=== PATIENT | male | born 1960 | race Caucasian/White ===

== ENCOUNTER 2016-11-11 09:40 | Emergency (ER) | payer OTHER ==
[2016-11-11] MEDS ORDERED: Aspirin 81 MG Tab.Chew PO ONE (10:03)
--- NOTE | 2016-11-11 10:10 | EDM.PDOC ---
ED HPI GENERAL MEDICAL PROBLEM - General Chief Complaint: Syncope Stated Complaint: DIZZY Time Seen by Provider: 11/11/16 09:50 - History of Present Illness INITIAL COMMENTS - FREE TEXT/NARRATIVE: HISTORY AND PHYSICAL: History of present illness: Patient is 56-year-old white male presents with concern of palpitations patient states he had several episodes in which he felt like he describes a funny feeling in his chest he says it feels somewhat like a skipped beat or an extra beat he denies chest pain denies nausea vomiting he notes that today and she just didn't feel right he describes some lightheadedness or dizziness there was no associated shortness of breath or chest pain with any of these episodes patient is an avid athlete and plays basketball regularly he does have a scheduled regular appointment with his private medical doctor. He denies drug or alcohol abuse he is not a smoker is no diabetes and has a negative family history Review of systems: As per history of present illness and below otherwise all systems reviewed and negative. Past medical history: As per history of present illness and as reviewed below otherwise noncontributory. Surgical history: As per history of present illness and as reviewed below otherwise noncontributory. Social history: No reported history of drug or alcohol abuse. Family history: As per history of present illness and as reviewed below otherwise noncontributory. Physical exam: HEENT: Atraumatic, normocephalic, pupils reactive, negative for conjunctival pallor or scleral icterus, mucous membranes moist, throat clear, neck supple, nontender, trachea midline. Lungs: Clear to auscultation, breath sounds equal bilaterally, chest nontender. Heart: S1S2, regular, negative for clicks, rubs, or JVD. Abdomen: Soft, nondistended, nontender. Negative for masses or hepatosplenomegaly. Negative for costovertebral tenderness. Pelvis: Stable nontender. Genitourinary: Deferred. Rectal: Deferred. Extremities: Atraumatic, negative for cords or calf pain. Neurovascular unremarkable. Neuro: Awake, alert, oriented. Cranial nerves II through XII unremarkable. Cerebellum unremarkable. Motor and sensory unremarkable throughout. Exam nonfocal. Diagnostics: CBC CMP PT/INR troponin d-dimer chest x-ray EKG CT brain Therapeutics: Aspirin 324 mg by mouth Impression: #1 dysphoria #2 palpitations #3 dizziness Definitive disposition and diagnosis as appropriate pending reevaluation and review of above. - Related Data Allergies Allergy/AdvReac Type Severity Reaction Status Date / Time amoxicillin [From Augmentin] Allergy Diarrhea Verified 11/11/16 10:14 clavulanic acid Allergy Diarrhea Verified 11/11/16 10:14 [From Augmentin] Home Meds: Home Meds . [No Known Home Meds] 11/11/16 [History] Past Medical History HEENT History: Reports: Other (see below) Other HEENT History: New Dental [place] this week Musculoskeletal History: Reports: Other (see below) Other Musculoskeletal History: Some discomfort to Right wrist 'may be arthritis' - Past Surgical History GI Surgical History: Reports: Colonoscopy Social & Family History - Tobacco Use Smoking Status *Q: Never Smoker Second Hand Smoke Exposure: No - Recreational Drug Use Recreational Drug Use: No Drug Use in Last 12 Months: No ED ROS GENERAL - Review of Systems Review Of Systems: ROS reveals no pertinent complaints other than HPI. ED EXAM, GENERAL - Physical Exam Exam: See Below (See dictation) Course - Vital Signs Text/Narrative:: Results were reviewed with patient case was discussed with Dr. Rivera discussion regarding observation versus outpatient management was reviewed with patient and PMD patient opts for outpatient followup with Dr. Rivera return as needed as discussed Last Recorded V/S: Last Vital Signs Temp 36.4 C 11/11/16 10:00 Pulse 75 11/11/16 10:00 Resp 18 11/11/16 10:00 BP 167/90 H 11/11/16 10:00 Pulse Ox 98 11/11/16 10:00 - Orders/Labs/Meds Orders: Active Orders 24 hr Category Date Time Status EKG Documentation Completion [RC] STAT Care 11/11/16 10:02 Active Chest 2V [CR] Stat Exams 11/11/16 10:03 Taken Head wo Cont [CT] Stat Exams 11/11/16 10:03 Taken COMPREHENSIVE METABOLIC PN,CMP [CHEM] Stat Lab 11/11/16 10:12 Received Labs: Laboratory Tests 11/11/16 11/11/16 11/11/16 Range/Units 10:12 10:12 10:12 WBC 3.80 L (4.0-11.0) K/uL RBC 5.79 (4.50-5.90) M/uL Hgb 16.6 (13.0-17.0) g/dL Hct 49.1 (38.0-50.0) % MCV 84.8 (80.0-98.0) fL MCH 28.7 (27.0-32.0) pg MCHC 33.8 (31.0-37.0) g/dL RDW Std Deviation 44.3 (28.0-62.0) fl RDW Coeff of Kiersten 14 (11.0-15.0) % Plt Count 208 (150-400) K/uL MPV 10.50 (7.40-12.00) fL Neut % (Auto) 58.4 (48.0-80.0) % Lymph % (Auto) 29.5 (16.0-40.0) % Edgar % (Auto) 7.9 (0.0-15.0) % Eos % (Auto) 3.7 (0.0-7.0) % Baso % (Auto) 0.5 (0.0-1.5) % Neut # (Auto) 2.2 (1.4-5.7) K/uL Lymph # (Auto) 1.1 (0.6-2.4) K/uL Edgar # (Auto) 0.3 (0.0-0.8) K/uL Eos # (Auto) 0.1 (0.0-0.7) K/uL Baso # (Auto) 0.0 (0.0-0.1) K/uL Nucleated RBC % 0.0 /100WBC Nucleated RBCs # 0 K/uL INR 1.04 (0.86-1.11) D-Dimer, Quantitative 0.41 (0.0-0.52) mg/LFEU Troponin I < 0.10 (0.0-0.29) NG/ML Meds: Medications Discontinued Medications Generic Name Dose Route Start Last Admin Trade Name Freq PRN Reason Stop Dose Admin Aspirin 324 mg 11/11/16 10:03 11/11/16 10:18 Aspirin PO 11/11/16 10:04 324 mg ONETIME ONE Administration Departure - Departure Time of Disposition: 10:47 Disposition: Home, Self-Care 01 Condition: good Clinical Impression: Dizziness, Palpitations Referrals: James Rivera MD [Primary Care Provider] - Forms: ED Department Discharge Additional Instructions: The following information is given to patients seen in the emergency department who are being discharged to home. This information is to outline your options for follow-up care. We provide all patients seen in our emergency department with a follow-up referral. The need for follow-up, as well as the timing and circumstances, are variable depending upon the specifics of your emergency department visit. If you don't have a primary care physician on staff, we will provide you with a referral. We always advise you to contact your personal physician following an emergency department visit to inform them of the circumstance of the visit and for follow-up with them and/or the need for any referrals to a consulting specialist. The emergency department will also refer you to a specialist when appropriate. This referral assures that you have the opportunity for followup care with a specialist. All of these measure are taken in an effort to provide you with optimal care, which includes your followup. Under all circumstances we always encourage you to contact your private physician who remains a resource for coordinating your care. When calling for followup care, please make the office aware that this follow-up is from your recent emergency room visit. If for any reason you are refused follow-up, please contact the [facility] emergency department at and asked to speak to the emergency department charge nurse. Continue aspirin daily follow up with private medical doctor as discussed return as needed as discussed - My Orders Last 24 Hours: My Active Orders 11/11/16 10:02 EKG Documentation Completion [RC] STAT 11/11/16 10:03 Chest 2V [CR] Stat Head wo Cont [CT] Stat 11/11/16 10:12 COMPREHENSIVE METABOLIC PN,CMP [CHEM] Stat - Assessment/Plan Last 24 Hours: My Active Orders 11/11/16 10:02 EKG Documentation Completion [RC] STAT 11/11/16 10:03 Chest 2V [CR] Stat Head wo Cont [CT] Stat 11/11/16 10:12 COMPREHENSIVE METABOLIC PN,CMP [CHEM] Stat
[2016-11-11 10:54] LABS: CHLORIDE,CL 107 mmol/L (98-110); SODIUM,NA 141 mmol/L (136-146)
--- NOTE | 2016-11-11 11:04 | CR ---
EXAMINATION: Two-view chest (PA and Lateral views). HISTORY: Shortness of breath. FINDINGS: The trachea is midline. The cardiomediastinal silhouette is within normal limits. No pulmonary infil trates, effusions or pneumothorax. Osseous structures appear unremarkable. IMPRESSION: No acute cardiopulmonary process.
--- NOTE | 2016-11-11 11:09 | CT ---
EXAMINATION: Non contrast CT head. Coronal and sagittal reformats. HISTORY: Pain FINDINGS: No evidence of intra or extra axial hemorrhage, mass, midline shift, hydrocephalus or edema. No hy poattenuation changes in the major vascular territories to suggest acute infarct. No abnormal intracranial calcifications are detected. No evidence of substantial vascular calcifica tions. Mild mucosal thickening is noted within the right maxillary sinus. Mastoid air cells are clear. Ther e is moderate rightward deviation of the nasal septum. Pituitary fossa appears unremarkable. The calvarium is intact. No evidence of skull fracture. IMPRESSION: No acute intracranial findings.
[2016-11-11 11:28] VITALS: BP 125/86
== END 2016-11-11 11:30 | disposition home or self-care (01) ==
LOC: MW.ED 09:40
DX: R42 Dizziness and giddiness (principal); R00.2 Palpitations; F64.0 Transsexualism; Z88.1 Allergy status to other antibiotic agents
CPT/HCPCS: 36415; 70450; 71020; 80053; 84484; 85025; 85379; 85610; 93005; 99284; A9270

== ENCOUNTER → 2016-11-17 | Outpatient (CLI) | payer OTHER | END | disposition home or self-care (01) | LOC: MW.RT 12:51 | PROVIDERS: ATTEND Emergency Medicine | DX: R00.2 Palpitations (principal) | CPT/HCPCS: 93225 ==

== ENCOUNTER 2018-08-30 07:34 | Day surgery (SDC) | payer OTHER ==
--- NOTE | 2018-08-30 07:29 | PCM.PREANE ---
Preanesthetic Assessment - Anesthesia/Transfusion/Family Hx Anesthesia History: Prior Anesthesia Reaction (colonoscopy, knee scope: post op nausea after knee scope) Type of Anesthesia Reaction: Excessive Nausea/Vomiting Other Type of Anesthesia Reaction Comment: Denies any known family history of problems with anesthesia Family History of Anesthesia Reaction: No Transfusion History: No Prior Transfusion(s) - Review of Systems General: No Symptoms (history of motion sickness) Pulmonary: No Symptoms Cardiovascular: No Symptoms Gastrointestinal: No Symptoms Neurological: No Symptoms (history of concussion 2017. CT head was WNL. Basketball injury. No sequelae) Other: Reports: None - Physical Assessment NPO Status Date: 08/30/18 NPO Status Time: 00:00 Pulse: 71 O2 Sat by Pulse Oximetry: 98 Respiratory Rate: 16 Blood Pressure: 177/90 Temperature: 36.6 C Height: 1.96 m Weight: 90.718 kg ASA Class: 1 Mental Status: Alert & Oriented x3 Airway Class: Mallampati = 1 Dentition: Reports: Normal Dentition Thyro-Mental Finger Breadths: 2 Mouth Opening Finger Breadths: 3 ROM/Head Extension: Full Lungs: Clear to Auscultation, Normal Respiratory Effort Cardiovascular: Regular Rate, Regular Rhythm, No Murmurs - Imaging/EKG Impressions: EKG 2017: NSR with [facility] (in ER for concussion) - Allergies Allergies/Adverse Reactions: Allergies Allergy/AdvReac Type Severity Reaction Status Date / Time amoxicillin [From Augmentin] Allergy Nausea and Verified 08/29/18 10:08 Vomiting clavulanic acid Allergy Nausea and Verified 08/29/18 10:08 [From Augmentin] Vomiting - Blood Blood Available: No Product(s) Available: None - Anesthesia Plan Pre-Op Medication Ordered: None - Acknowledgements Anesthesia Type Planned: General Anesthesia (Plan: GA. LMA vs. ett. Denies GERD) Pt an Appropriate Candidate for the Planned Anesthesia: Yes Alternatives and Risks of Anesthesia Discussed w Pt/Guardian: Yes Pt/Guardian Understands and Agrees with Anesthesia Plan: Yes PreAnesthesia Questionnaire HEENT History: Reports: None Other HEENT History: New Dental [place] this week Cardiovascular History: Reports: None Respiratory History: Reports: None Gastrointestinal History: Reports: None Genitourinary History: Reports: None Musculoskeletal History: Reports: Other (See Below) Other Musculoskeletal History: Some discomfort to Right wrist 'may be arthritis' Neurological History: Reports: Concussion, Other (See Below) Other Neuro History: hx of motion sickness Psychiatric History: Reports: None Endocrine/Metabolic History: Reports: None Hematologic History: Reports: None Immunologic History: Reports: None Oncologic (Cancer) History: Reports: None Dermatologic History: Reports: None - Infectious Disease History Infectious Disease History: Reports: None - Past Surgical History Head Surgeries/Procedures: Reports: None GI Surgical History: Reports: Colonoscopy Musculoskeletal Surgical History: Reports: Arthroscopic Knee - SUBSTANCE USE Smoking Status *Q: Never Smoker Recreational Drug Use History: No - HOME MEDS Home Medications: Home Meds . [No Known Home Meds] 11/11/16 [History] - CURRENT (IN HOUSE) MEDS Current Meds: Current Medications Hydrocodone Bitart/Acetaminophen ([place] 325-5 Mg) 1 tab PO Q4H PRN PRN Reason: Pain Bupivacaine HCl/Epinephrine Bitart (Marcaine 0.25%/Epinephrine 1:200,000) 10 ml INJECT ONETIME ONE Stop: 08/30/18 08:01 Clindamycin Phosphate 600 mg/ (Premix) 50 mls @ 150 mls/hr IV ONETIME ONE Stop: 08/30/18 08:19 Lactated Ringer's (Ringers, Lactated) 1,000 mls @ 125 mls/hr IV ASDIRECTED ZEESHAN Discontinued Medications Clindamycin Phosphate (Cleocin In D5w) Confirm Administered Dose 50 mls @ as directed .ROUTE .STK-MED ONE Stop: 08/30/18 07:16 Bupivacaine HCl/Epinephrine Bitart (Sensorc Mpf 0.25%-Epi [id number]) Confirm Administered Dose 30 mls @ as directed .ROUTE .STK-MED ONE Stop: 08/30/18 07:22
[~2018-08-30 07:34] MED LIST: Bupivacaine 25%/EPINEPHrine/PF 30 ML ONE; Clindamycin Phosphate in D5W 50 ML ONE; Lidocaine 2% 5 ML SDV ONE; Midazolam 1 MG/ML 2 ML SDV ONE; Ondansetron 4 MG/2 ML SDV ONE; Propofol 200 MG/20 ML SDV ONE; fentaNYL 250 MCG/5 ML SDV ONE
[2018-08-30] MEDS ORDERED: Clindamycin Phosphate in D5W 600 MG in Premix Bag 1 BAG IV ONE ×2 (08:00)
[2018-08-30] MEDS ORDERED: Bupivacaine 0.25%/EPINEPHrine 1:200,000 10 ML SDV INJECT ONE (08:00)
[2018-08-30] MEDS ORDERED: Acetaminophen/HYDROcodone 325-5 MG Tab PO PRN (08:00)
[2018-08-30] MEDS ORDERED: Lactated Ringers 1,000 ML IV SCH (08:00)
[2018-08-30] MEDS ORDERED: fentaNYL 100 MCG/2 ML SDV IVPUSH PRN (09:26)
[2018-08-30] MEDS ORDERED: Meperidine PF 25 MG/ML Syringe IVPUSH ONE (10:27)
--- NOTE | 2018-08-30 10:56 | PCM.POSTAN ---
POST ANESTHESIA ASSESSMENT - MENTAL STATUS Mental Status: Alert, Oriented - VITAL SIGNS Pulse Rate: 69 SaO2: 97 Resp Rate: 12 Blood Pressure: 117/81 Temperature: 36.2 C - RESPIRATORY Respiratory Status: Respiratory Rate WNL, Airway Patent, O2 Saturation Stable - CARDIOVASCULAR CV Status: Pulse Rate WNL, Blood Pressure Stable - GASTROINTESTINAL GI Status: No Symptoms - PAIN Pain Score: 0 (no pain, no nausea) - POST OP HYDRATION Hydration Status: Adequate & Stable - OBSERVATIONS Free Text/Narrative:: good post op phase I recovery. Still a little groggy.
--- NOTE | 2018-08-30 11:05 | PCM48HPAN ---
Post Anesthesia Note - EVALUATION WITHIN 48HRS OF ANESTHETIC Vital Signs in Normal Range: Yes Patient Participated in Evaluation: Yes Respiratory Function Stable: Yes Airway Patent: Yes Cardiovascular Function Stable: Yes Hydration Status Stable: Yes Pain Control Satisfactory: Yes Nausea and Vomiting Control Satisfactory: Yes Pulse Rate: 69 SaO2: 98 Resp Rate: 12 Temperature: 36.2 C Blood Pressure: 117/81
[2018-08-30 12:07] VITALS: BP 154/90
--- NOTE | 2018-09-02 09:01 | PCM.OPNOTE ---
- General Post-Op/Procedure Note Date of Surgery/Procedure: 08/30/18 Operative Procedure(s): right ring finger middle phalanx fracture - external fixator placement single plane Pre Op Diagnosis: right ring finger middle phalanx intraarticular fracture - poor fracture pattern Post-Op Diagnosis: Same Anesthesia Technique: Local, MAC Primary Surgeon: Yulisa Aquino Supervisory Examiner: Mindi Blair Complications: None Condition: Good Free Text/Narrative:: conversion to LMA for some obstruction. discussed sleep apnea workup with and would recommend.
--- NOTE | 2018-09-04 14:49 | OR ---
SURGEON: HAM REESE MD DATE OF PROCEDURE: 08/30/2018 PREOPERATIVE DIAGNOSIS: Right ring finger middle phalanx intra-articular fracture, poor fracture pattern. POSTOPERATIVE DIAGNOSIS: Right ring finger middle phalanx intra-articular fracture, poor fracture pattern. PROCEDURES: Right ring finger middle phalanx fracture closed reduction with external fixator placement in a single plane. CRITICAL CARE NURSE SPECIALIST: ROLY Michel. REASON FOR CRITICAL CARE NURSE SPECIALIST: Retraction prepping draping and closure assistance. ANESTHESIA: local MAC converted to LMA for obstruction. INDICATIONS: Mr. Schneider is a 58-year-old gentleman seen today in evaluation for a very poor fracture pattern for the right ring finger middle phalanx. It is intra- articular and unfortunately distracting. Risks and benefits were discussed with him including, but not limited to, bleeding, infection, damage to underlying or overlying structures, possible need for future interventions, and possible scarring. Because of the poor fracture pattern, remodeling is necessary. We discussed external fixation. He does understand, diagrams were provided, he is in agreement to proceed. PROCEDURE IN DETAIL: After informed consent was obtained and placed on the chart, he was brought to operating theater and laid in supine position. After adequate reduction using fluoroscopy was obtained to the right ring finger middle phalanx fracture, a single 0.62 K-wire was placed along the distal aspect of the proximal phalanx. It was placed into curvature for appropriate external fixation being bent, brought distally, and hook placed. A 0.45 K-wire was then placed across the proximal portion of the middle phalanx and more distal portions of the middle phalanx. The proximal wire was anchored to the 0.62 K-wire to prevent angulation of the external fixation device. The distal pin was then angled proximally and a hook placed to allow distraction of the proximal interphalangeal joint with elastics. The patient tolerated this well and position confirmed on fluroscopy. He was placed in a short-arm volar splint for protection at the end of the case. The wounds were dressed with Xeroform, fluffs, and a splint. FOLLOWUP INSTRUCTIONS: The patient will see us in 1 week, sooner if any problems, questions, or concerns. Given a prescription for pain control as needed. HEGGTHE / MODL /[id number] ANTOINE
== END 2018-08-30 11:52 | disposition home or self-care (01) ==
LOC: MW.SDS 07:34
PROVIDERS: ATTEND Plastic Surgery
DX: S62.624A Displaced fracture of middle phalanx of right ring finger, initial encounter for closed fracture (principal); Z88.1 Allergy status to other antibiotic agents; Y93.67 Activity, basketball
CPT/HCPCS: 20690; 26720; J2250; J2405; J2704; J3010; J3490; J7120; 01820

== ENCOUNTER 2018-09-13 06:19 | Day surgery (SDC) | payer OTHER ==
[2018-09-13] MEDS ORDERED: Bupivacaine 0.25%/EPINEPHrine 1:200,000 10 ML SDV ONE ×2 (07:40→08:27)
[2018-09-13] MEDS ORDERED: Lidocaine 1% 20 ML MDV ONE (07:41)
[2018-09-13] MEDS ORDERED: Clindamycin Phosphate in D5W 600 MG in Premix Bag 1 BAG IV ONE ×2 (08:00)
[2018-09-13] MEDS ORDERED: Lactated Ringers 1,000 ML IV SCH (08:00)
[2018-09-13] MEDS ORDERED: Acetaminophen/HYDROcodone 325-5 MG Tab PO PRN (08:00)
[2018-09-13] MEDS ORDERED: Bupivacaine 0.25%/EPINEPHrine 1:200,000 10 ML SDV INJECT ONE (08:00)
[2018-09-13 09:11] VITALS: BP 141/85
--- NOTE | 2018-09-13 14:57 | PCM.OPNOTE ---
- General Post-Op/Procedure Note Date of Surgery/Procedure: 09/13/18 Operative Procedure(s): removal of external fixation and percutaneous pin fixation of the right ring finger middle phalanx fracture - unplanned return to OR post op Pre Op Diagnosis: external fixation construct not holding - right middlef phalanx ring finger fracture - subsequent poor healing/position Post-Op Diagnosis: Same Anesthesia Technique: Local Primary Surgeon: Yulisa Aquino Hone Operator: Mindi Blair Complications: None Condition: Good
--- NOTE | 2018-09-13 16:25 | OR ---
SURGEON: HAM REESE MD DATE OF PROCEDURE: 09/13/2018 PREOPERATIVE DIAGNOSIS: External fixation construct, status post right middle phalanx ring finger fracture, instability with poor healing position. POSTOPERATIVE DIAGNOSIS: External fixation construct, status post right middle phalanx ring finger fracture, instability with poor healing position. PROCEDURES: Removal of external fixation device and percutaneous pin fixation of the right ring finger middle phalanx fracture, unplanned return to the operating room. SPECIALTY FOOD PRODUCTS SUPERVISOR: ROLY Michel. ANESTHESIA: Local. INDICATIONS: Mr. Schneider is a 58-year-old gentleman who had an external fixation device placed on a very unfavorable fracture of the right middle phalanx of the right ring finger. The construct held nicely initially, but unfortunately upon starting range of motion, it did not hold and the volar plate did not contact in place sufficiently and it was dorsally subluxing. We did reduce it several times and attempted splinting on top of the finger, but this was unable to be maintained. We discussed risks and benefits of pin fixation to allow the volar plate contracture before aggressive range of motion for rehabilitation and physical therapy. Fortunately, the small volar fragment has healed some to the bone and thus it was closing in better position. Risks and benefits were discussed including, but not limited to, bleeding, infection, damage to underlying or overlying structures, possible need for future interventions, possible scarring. PROCEDURE IN DETAIL: After informed consent was obtained and placed on the chart, the patient was brought to operating theater and laid in supine position. After adequate local anesthesia was obtained, the area was prepped and draped, and a time-out was completed to confirm side and site. Attention was then paid to removal of the external fixation construct with pins being trimmed and then pulled. This was done without difficulty. Fluoroscopy was then used to reduce the finger itself, and a 0.45 K-wire was placed longitudinally in a cross-quintero to allow appropriate fixation. The single K-wire was trimmed for both of its segments, and then two 0.45 Jurgan ball protectors were placed on the external portion of the tendon. The patient tolerated this well. All counts and needles were correct at the end of the case. FOLLOWUP INSTRUCTIONS: The patient will see us in clinic in three weeks, sooner if any problems, questions, or concerns. FILOMENA / DAMIAN /[id number] MTDD
== END 2018-09-13 09:15 | disposition home or self-care (01) ==
LOC: MW.SDS 06:19
PROVIDERS: ATTEND Plastic Surgery
DX: S62.624 Displaced fracture of middle phalanx of right ring finger (principal); X58.XXXD Exposure to other specified factors, subsequent encounter; Z88.0 Allergy status to penicillin; Z88.1 Allergy status to other antibiotic agents
CPT/HCPCS: 20694; 26727; J3490; J7120